=== PATIENT | female | born 1985 | race Caucasian/White ===

== ENCOUNTER 2017-10-14 13:03 | Emergency (ER) | payer OTHER ==
[2017-10-14 13:13] VITALS: BP 131/89; PULSE 76; RESP 16; TEMP 98.2; O2SAT 97
[2017-10-14] MEDS ORDERED: TDAP ADULT 0.5 ML INJ (BOOSTRIX) IM ONE (13:56)
--- NOTE | 2017-10-14 14:03 | EDPHY ---
H & P Time Seen by Provider: 10/14/17 13:55 HPI/ROS: CHIEF COMPLAINT: Right hand laceration HISTORY OF PRESENT ILLNESS: 32-year-old female works at [employer], was at work holding a glass when she fell onto a glass sustaining multiple lacerations to her hand from the broken glass. Denies paresthesia. Her tetanus is out-of- date. Denies motor deficit. Denies foreign body sensation PHYSICAL EXAM (Prior to examination, patient consented to physical exam, hands were washed and my usual and customary physical exam procedures followed) 1) GENERAL: Well-developed, well-nourished, alert and oriented. Appears to be in no acute distress. 2) HEAD: Normocephalic 3) HEENT: sclera anicteric 4) LUNGS: Breathing comfortably. 5) SKIN: Right 2nd digit PIP joint volar aspect 1.5 cm laceration. 4th digit PIP joint volar aspect 1.5 cm laceration. Palmar aspect right distal 2nd metacarpal 1 cm laceration. No visible foreign bodies. 6) MUSCULOSKELETAL: FDS and FDP function intact of the 2nd and 4th digit all other digits. No signs of infection. Negative kanavel. 7) NEUROLOGIC: Two-point discrimination intact all effect digits. Smoking Status: Never smoked Constitutional: Initial Vital Signs Temperature (C) 36.8 C 10/14/17 13:09 Heart Rate 76 10/14/17 13:09 Respiratory Rate 16 10/14/17 13:09 Blood Pressure 131/89 H 10/14/17 13:09 O2 Sat (%) 97 10/14/17 13:09 O2 Delivery Mode Room Air Allergies/Adverse Reactions: No Known Allergies Allergy (Unverified 10/14/17 13:08) Home Medications: Medication Instructions Recorded NK [No Known Home Meds] 10/14/17 Necon 0.5-35-28 Tablet 10/14/17 MDM/Departure - MDM Imaging Results: Imaging Impressions Hand X-Ray 10/14/17 14:00 Impression: Normal. Images reviewed by myself Procedures: Procedure: Laceration repair. I was requested by to perform wound closure I explained the indications, risks and benefits for both laceration repair and anesthetic administration. Verbal consent was obtained from the patient and parent. The laceration on the right 2nd, 4th digit and palmar MC was anesthetized using 0.5% bupivicaine without epinephrine. After anesthetic administered the patient was observed for a period of time and had no apparent adverse effects. The wound was cleaned, prepped, draped in normal sterile fashion and explored to its base. No foreign body seen, no foreign bodies palpated. There were no deep structures involved. No tendon injury was identified. A total of 8 simple interrupted 5 O Prolene sutures were placed by myself. The wound repair was complex. The procedure was performed by myself. Patient has been informed that scarring will occur, although efforts have been made to minimize this. Medications Given: Discontinued Medications Diphtheria/Tetanus/Acell Pertussis (Boostrix) 0.5 ml IM .ONCE ONE Stop: 10/14/17 13:57 Last Admin: 10/14/17 14:04 Dose: 0.5 ml ED Course/Re-evaluation: Care of patient under supervision of secondary supervising physician Dr Leblanc. - Depart Disposition: Home, Routine, Self-Care Clinical Impression: Laceration of right hand Qualifiers: Encounter type: initial encounter Foreign body presence: without foreign body Qualified Code(s): S61.411A - Laceration without foreign body of right hand, initial encounter Condition: Good Instructions: Care For Your Stitches (ED), Laceration (ED) Additional Instructions: Return to the ER if you develop redness, swelling, discharge, warmth to the wound, red streaks going up your arm, or any other symptoms that concern you. Referrals: Return, to the ER in 10 days for suture removal [Other] - 10/24/17
[2017-10-14] MEDS ORDERED: SKIN ADHESIVE (DERMABOND) 1 EACH TP ONE (14:21)
== END 2017-10-14 15:31 | disposition home or self-care (01) ==
PROC: 0HQFXZZ Repair Right Hand Skin, External Approach (ICD-10-PCS; principal; 2017-10-14)
DX: S61.411A Laceration without foreign body of right hand, initial encounter (principal); Z23 Encounter for immunization; W25.XXXA Contact with sharp glass, initial encounter; Y92.69 Other specified industrial and construction area as the place of occurrence of the external cause; Y99.0 Civilian activity done for income or pay; Y93.89 Activity, other specified